=== PATIENT | female | born 1975 | race African-American/Black ===

== ENCOUNTER → 2016-10-17 09:00 | Outpatient (CLI) | payer MEDICAID ==
[2015-03-29 13:14] VITALS: BMI 35.0
[~2016-10-17 09:00] MED LIST: ADIPEX-P37.5 MG PO; LISINOPRIL5 MG PO; NORCO 10/325 TA1 TA1 PO; TOPROL XL50 MG PO
== END | disposition home or self-care (01) ==
LOC: D.MRI 09:00
DX: M25.561 Pain in right knee (principal)

== ENCOUNTER → 2016-11-07 08:51 | Outpatient (CLI) | payer BC, MEDICAID ==
[2015-03-29 13:14] VITALS: BMI 35.0
--- NOTE | 2016-11-14 08:46 | EC ---
PATIENT:LILIANA COOL DATE OF SERVICE: 11/07/16 SEX: F MEDICAL RECORD: [id number] DATE OF : [birth year] LOCATION:[facility] AGE OF PATIENT: 41 ADMISSION DATE: 11/07/16 REFERRING PHYSICIAN: INTERPRETING PHYSICIAN: CLAYTON HOGAN MD ECHOCARDIOGRAM REPORT ECHO CHARGES 4 ECHO COMPLETE CLINICAL DIAGNOSIS: HTN ECHOCARDIOGRAPHIC MEASUREMENTS (adult normal given) AC root (d.<3.7cm) 3.1 LV Septum d (<1.2 cm> 1.6 Valve Excursion 1.7 LV Septum (systole) 1.8 Left Atria (s.<4.0cm> 3.6 LVPW d(<1.2cm) 1.6 RV (d.<2.3cm) 4.0 LVPW (sytole) 2.1 LV diastole(<5.6CM) 4.4 MV E-F(>70mm/sec) LV systole 2.6 LVOT Diameter 1.8 MV exc.(>10mm) 1.8 Est.ejection fraction (50-75%) Pericardial Effusion N DOPPLER: LVIT A 79.0 E 88.0 LA RVSP 19 LVOT 117 AOP1/2T Asc. Ao 163 RVOT 83 RA PA 131 AV Gradient Peak 10.61 AV Mean 5.8 AV Area 1.7 MV Gradient Peak 4.6 MV Mean 2.04 MV Area COMMENTS: [employer]: Jt [employer] Sales Representative:Jose Antonio Hogan TAPE# PACS DATE OF SERVICE: 11/07/2016 Echocardiogram FINDINGS: 1. Left ventricular chamber size is within normal limits. Left ventricular systolic function is normal. Overall ejection fraction estimated at 55%. 2. Left atrium is within normal limits at 3.6 cm. Right atrium and right ventricular chamber sizes are mildly dilated. 3. Valvular structures have normal structure and motion. ECHOCARDIOGRAM REPORT [id number] LILIANA COOL 4. Doppler interrogation reveals mild mitral regurgitation, mild tricuspid regurgitation, no other valvular insufficiency or stenosis. 5. No evidence of pericardial effusion or left ventricular thrombus. TRANSINT:[id number] Voice Confirmation ID: [id number] DOCUMENT ID: [id number] CLAYTON HOGAN MD at 0846 CC: ELIZABETH GARCIA DO [id number] DICTATION DATE: 11/07/16 1230 SPRINKLER FITTER APPRENTICE: 11/08/16 0251 DEP CLI 11/07/16 [place] [id number] [place] [id number]
== END | disposition home or self-care (01) ==
LOC: D.ECHO 08:51
DX: I10 Essential (primary) hypertension (principal)

== ENCOUNTER 2017-01-11 03:03 | Emergency (ER) | payer MEDICAID ==
[2015-03-29 13:14] VITALS: BMI 35.0
== END 2017-01-11 04:10 | disposition home or self-care (01) ==
LOC: D.ER 03:03
DX: S83.92XA Sprain of unspecified site of left knee, initial encounter (principal); W19.XXXA Unspecified fall, initial encounter; Y93.89 Activity, other specified; Y92.89 Other specified places as the place of occurrence of the external cause; I10 Essential (primary) hypertension